=== PATIENT | female | born 1925 | race Caucasian/White ===

== ENCOUNTER 2016-08-19 10:07 | Inpatient (IN) ==
[2016-08-19] MEDS ORDERED: NS 1,000 ML IV ONE ×2 (10:29→18:23)
[2016-08-19 10:54] LABS: MANUAL DIFF NEEDED? NO
[2016-08-19 10:58] LABS: BASO% 0.6 % (0.0-0.8); EOS# 0.07 X1000 (0.0-0.7); EOS% 1.1 % (0.0-10.0); HEMATOCRIT 37.8 % (37.0-47.0); HEMOGLOBIN 12.7 g/dL (12.0-16.0); IMM GRAN# 0.02 X1000 (0.0-0.04); IMM GRAN% 0.3 % (0.0-0.5); LYMPH# 1.69 X1000 (1.2-3.4); LYMPH% 25.4 % (20.5-51.1); MCHC 33.6 g/dL (33-37); MCV 101.1 FL (81-99); MONO# 0.57 X1000 (0.11-0.59); MONO% 8.6 % (1.7-9.3); MPV 11.9 FL (7.4-10.4); PLT 277 X1000 (130-400); RBC 3.74 XMIL (4.2-5.4)
--- NOTE | 2016-08-19 11:01 | ED EKG INTERP ---
This chart was entered by Dara Huitron Scribe, acting as scribe for Carmelo Wilkes MD. EKG Interpretation - EKG Time of EKG reading by physician:: 10:11 EKG Read and Signed by:: Carmelo Wilkes EKG Interpretation (*Must complete 3 of following elements*): Abnormal Rate: 77 Rhythm: NSR [place]: normal QRS: normal MD Interval: normal ST Wave: non-specific ST changes This chart was documented by the indicated scribe, (Dara Huitron Scribe) and accurately reflects the services I performed and decisions made by ct, Carmelo Wilkes MD, as attested by the provider's signature.
[2016-08-19 11:05] LABS: INR 0.96; PROTIME 10.1 Seconds (9.2-11.7); PTT 24.1 Seconds (22.0-36.0)
[2016-08-19 11:20] LABS: ALLEN TEST YES; BE 4.5 mmoll (-3.0-3.0); BLOOD TYPE ARTERIAL; DRAW SITE R RADIAL; METHB 1.7 % (0.0-1.5); MODALITY CANNULA; O2(CT) 15.4 mL/dL (15.0-23.0); PCO2(98.6) 43 mmHg (35-45); PO2(98.6) 85 mmHg (60-100); SAMPLE BLOOD; SAO2 98.6 % (95.0-100.0); THB 11.4 g/dL (11.5-17.4); pH(98.6) 7.44 (7.35-7.45)
[2016-08-19 11:25] LABS: ALBUMIN 4.2 g/dL (3.5-5.0); CALCIUM 9.8 mg/dL (8.8-10.2); MAGNESIUM 2.2 mg/dL (1.5-2.7); TOTAL BILIRUBIN 0.42 mg/dL (0.20-1.00); TOTAL PROTEIN 8.6 g/dL (6.3-8.3)
[2016-08-19 11:46] LABS: URINE CULTURE NEEDED? NO; URINE MICRO REVIEW NEEDED? NO; URINE SOURCE CLEAN CATCH
[2016-08-19 11:53] LABS: BILIRUBIN URINE NEGATIVE (NEGATIVE); BLOOD URINE NEGATIVE (NEGATIVE); COLOR YELLOW; GLUCOSE URINE NEGATIVE (NEGATIVE); LEUKOCYTES URINE NEGATIVE (NEGATIVE); NITRITE URINE NEGATIVE (NEGATIVE); PH URINE 7.5; PROTEIN URINE TRACE mg/dL (NEGATIVE); SP GRAVITY URINE 1.011; TURBIDITY URINE HAZY (CLEAR); UROBILINOGEN URINE NORMAL (NORMAL)
[2016-08-19 11:55] LABS: UR EPITHELIAL CELLS <10 /HPF (<10); URINE BACTERIA NEGATIVE /HPF; URINE RBC <10 /HPF (<10); URINE WBC <10 /HPF (<10)
--- NOTE | 2016-08-19 12:23 | Diag Imaging Result Document ---
PROCEDURE NAME: CHEST-PORTABLE - 08/19/2016 SINGLE PORTABLE RADIOGRAPH OF THE CHEST: COMPARISON: 07/25/2016. FINDINGS: There is a calcified granuloma in the right lower lung zone. There is suggestion of stable COPD. The lungs are clear otherwise. Cardiac silhouette is prominent but stable. IMPRESSION: Stable COPD changes and cardiomegaly. No definite acute pathology.
--- NOTE | 2016-08-19 14:19 | PROVIDER DOCUMENTATION ---
This chart was entered by Dara Huitron Scribe, acting as scribe for Carmelo Wilkes MD. HPI-Neurological Disorder - General Chief Complaint: Stroke-Like Symptoms Stated Complaint: syncope Time Seen by Provider: 08/19/16 10:19 Source: patient, EMS Allergies/Adverse Reactions: Patient Allergies Allergy/AdvReac Type Severity Reaction Status Date / Time No Known Allergies Allergy Verified 08/19/16 10:28 Home Medications: Home Medication List Medication Instructions Recorded Confirmed Last Taken Type Donepezil [Aricept] 10 mg PO DAILY 02/05/16 08/19/16 08/19/16 History Folic Acid 1 mg PO DAILY 02/05/16 08/19/16 08/19/16 History Tramadol [Ultram] 50 mg PO Q8HR #12 tablet 07/25/16 08/19/16 Unknown Rx Acetaminophen [Tylenol] 325 mg PO PRN PRN 08/19/16 08/19/16 08/19/16 History - History of Present Illness-Neuro Nature of Presenting Problem: PT IS A 89YOF PRESENTING TO THE ED C/O AMS. PT IS A VERY WELL AND HEALTHY APPEARING 89YO THAT WAS TAKING A TYLENOL THIS AM AND FAMILY STATED SHE HAD A GLAZED OVER LOOK AND BEGAN TO FALL. FAMILY LOWERED HER TO THE GROUND WITHOUT INJURY. PT STATES SHE WAS CONFUSED AND HAD SOME SLURRED SPEECH. UNSURE OF THE LENGTH OF THIS EPISODE BUT DURING EXAM SHE IS COMPLETELY NEUROLOGICALLY INTACT. Severity: reports: mild Onset/Duration: reports: just prior to arrival Timing: reports: resolved prior to arrival Context: reports: other (POSSIBLE STROKE-LIKE SYMPTOMS) Character of Altered Mental Status: reports: disoriented, confused. denies: combative, agitated, unresponsive, seizure activity Any recent trauma/injury?: reports: none Character of Deficits: reports: altered sensation, decreased ability to stand New weakness or altered sensation location:: reports: general (diffuse) Cognitive Baseline: alert, oriented x3 Gait Baseline: uses a cane Associated Symptoms: reports: denies symptoms Similar Symptoms Previously?: No Recently seen or treated by another doctor?: No Review of Systems - Adult - REVIEW OF SYSTEMS - ADULT Constitutional: reports: no symptoms reported Eyes: reports: no symptoms reported Ears, Nose, Mouth & Throat: reports: no symptoms reported Cardiovascular: reports: no symptoms reported Respiratory: reports: no symptoms reported Gastrointestinal: reports: no symptoms reported Genitourinary: reports: no symptoms reported Musculoskeletal: reports: no symptoms reported Integumentary: reports: no symptoms reported Neurological: reports: see HPI, dizziness/vertigo, loss of balance, slurred speech. denies: paresthesia, seizure Psychiatric: reports: no symptoms reported Endocrine: reports: no symptoms reported Hematologic/Lymphatic: reports: no symptoms reported Allergic/Immunologic: reports: no symptoms reported All Other Systems: Reviewed and Negative Past History - Adult - PAST MEDICAL HISTORY-ADULT Review of Records: reports: Old Records Reviewed, Nursing Assessment Review, Medications Reviewed, Social history reviewed & non-contributory. Major Childhood Illnesses: reports: denies history Cardiovascular: reports: HTN Respiratory: reports: denies history Gastrointestinal: reports: denies history Obstetrical/Gynecological: reports: denies history Genitourinary: reports: kidney disease Musculoskeletal: reports: denies history Neurological: reports: Alzheimer's Endocrine/Immune: reports: denies history Other Conditions: reports: denies history - PRIOR SURGERIES/PROCEDURES Surgical/Procedure History: reports: hysterectomy - IMMUNIZATION STATUS Childhood Immunizations: See Nurse Assessment Flu Vaccine: See Nurse Assessment - FAMILY HISTORY Family History: reviewed, not pertinent - SOCIAL HISTORY Smoking: denies, non-smoker Substance Use: none/never, denies Alcohol Use Frequency: never Living Situation: family Physical Exam- Neurological - Physical Exam-Neuro Initial Vital Signs Reviewed: Yes General Appearance: appears well, alert, no apparent distress, thin Eye Exam: bilateral eye: normal inspection, PERRL, EOMI HENMT: normocephalic/atraumatic, moist mucous membranes, normal ENT inspection, TMs normal, pharynx normal Head Injury: no evidence of injury. negative: active bleeding Neck: non-tender, full range of motion, supple, normal inspection Respiratory: chest non-tender, lungs clear, normal breath sounds, no pleuratic chest pain, no respiratory distress, no accessory muscle use Cardiovascular: normal peripheral pulses, regular rate, rhythm, no edema, no gallop, no JVD, no murmur Abdominal Exam: normal bowel sounds, non tender, soft, no organomegaly, no pulsatile mass Lymphatic: no adenopathy Extremity: normal range of motion, non-tender, normal gait, normal inspection, no pedal edema, no calf tenderness, normal capillary refill, pelvis stable net repairer Exam: normal hearing, normal speech, PERRL Coordination/Gait: normal finger to nose, normal gait, negative Romberg's sign Motor/Sensory: no motor deficit, no sensory deficit, no pronator drift Neurologic: net repairer II-XII nml as tested, grossly normal, no motor/sensory deficits Integumentary: normal color, normal turgor, warm/dry Psych/Mental Status: normal mood/affect, normal thought content, normal thought process, oriented x 3 - Glascow Coma Scale Best Eye Response: (4) open spontaneously Best Verbal Response: (5) oriented Best Motor Response: (6) obeys commands Progress - PLAN OF CARE/RESULTS Progress/Plan/Lab Results: Vital Signs - 8 hr 08/19/16 10:16 08/19/16 10:18 08/19/16 11:53 Temperature 97.7 F Pulse Rate 73 73 65 Respiratory Rate 20 22 23 Blood Pressure 150/77 150/77 160/82 O2 Sat by Pulse Oximetry 99 99 99 08/19/16 12:27 08/19/16 13:45 Temperature Pulse Rate 65 72 Respiratory Rate 15 20 Blood Pressure 160/82 167/82 O2 Sat by Pulse Oximetry 100 100 Laboratory Results - last 24 hr 08/19/16 08/19/16 08/19/16 10:43 10:43 10:43 WBC 6.65 RBC 3.74 L Hgb 12.7 Hct 37.8 MCV 101.1 H MCH 34.0 H MCHC 33.6 RDW Std Deviation 16.5 H Plt Count 277 MPV 11.9 H Immature Gran % (Auto) 0.3 Neut % (Auto) 64.0 Lymph % (Auto) 25.4 Blaine % (Auto) 8.6 Eos % (Auto) 1.1 Baso % (Auto) 0.6 Immature Gran # (Auto) 0.02 Neut # (Auto) 4.26 Lymph # (Auto) 1.69 Blaine # (Auto) 0.57 Eos # (Auto) 0.07 Baso # (Auto) 0.04 PT INR PTT (Actin FS) Specimen Type Sample Site pH pCO2 pO2 HCO3 Base Excess Oxyhemoglobin ABG O2 Sat (Calculated) ABG O2 Saturation ABG Carboxyhemoglobin ABG Methemoglobin Earl Test A-a O2 Difference Total Hemoglobin Lactate Blood Gas Modality FiO2 % Sodium 137 Potassium 4.0 Chloride 99 Carbon Dioxide 28 Anion Gap 10 BUN 21 Creatinine 1.1 H Estimated GFR/1.73 m2 47 BUN/Creatinine Ratio 19 Glucose 90 Calculated Osmolality 276 Calcium 9.8 Magnesium 2.2 Total Bilirubin 0.42 AST 20 ALT 11 Alkaline Phosphatase 92 Creatine Kinase 64 Troponin T Total Protein 8.6 H Albumin 4.2 Globulin 4.4 Albumin/Globulin Ratio 1.0 Plasma Lactate Urine Source Urine Color Urine Turbidity Urine pH Ur Specific [place] Urine Protein Ur Glucose (Stick) Ur Ketones (Stick) Urine Blood Urine Nitrite Urine Bilirubin Urobilinogen Dipstick Urine Leukocytes Urine WBC (Auto) Urine RBC (Auto) U Epithel Cells (Auto) Urine Bacteria (Auto) Plasma/Serum Ethyl Alc 08/19/16 08/19/16 08/19/16 10:43 10:43 10:43 WBC RBC Hgb Hct MCV MCH MCHC RDW Std Deviation Plt Count MPV Immature Gran % (Auto) Neut % (Auto) Lymph % (Auto) [place] % (Auto) Eos % (Auto) Baso % (Auto) Immature Gran # (Auto) Neut # (Auto) Lymph # (Auto) Blaine # (Auto) Eos # (Auto) Baso # (Auto) PT 10.1 INR 0.96 PTT (Actin FS) 24.1 Specimen Type Sample Site pH pCO2 pO2 HCO3 Base Excess Oxyhemoglobin ABG O2 Sat (Calculated) ABG O2 Saturation ABG Carboxyhemoglobin ABG Methemoglobin Earl Test A-a O2 Difference Total Hemoglobin Lactate Blood Gas Modality FiO2 % Sodium Potassium Chloride Carbon Dioxide Anion Gap BUN Creatinine Estimated GFR/1.73 m2 BUN/Creatinine Ratio Glucose Calculated Osmolality Calcium Magnesium Total Bilirubin AST ALT Alkaline Phosphatase Creatine Kinase Troponin T < 0.010 Total Protein Albumin Globulin Albumin/Globulin Ratio Plasma Lactate 1.1 Urine Source Urine Color Urine Turbidity Urine pH Ur Specific [place] Urine Protein Ur Glucose (Stick) Ur Ketones (Stick) Urine Blood Urine Nitrite Urine Bilirubin Urobilinogen Dipstick Urine Leukocytes Urine WBC (Auto) Urine RBC (Auto) U Epithel Cells (Auto) Urine Bacteria (Auto) Plasma/Serum Ethyl Alc 08/19/16 08/19/16 11:15 11:39 WBC RBC Hgb Hct MCV MCH MCHC RDW Std Deviation Plt Count MPV Immature Gran % (Auto) Neut % (Auto) Lymph % (Auto) [place] % (Auto) Eos % (Auto) Baso % (Auto) Immature Gran # (Auto) Neut # (Auto) Lymph # (Auto) [place] # (Auto) Eos # (Auto) Baso # (Auto) PT INR PTT (Actin FS) Specimen Type ARTERIAL Sample Site R RADIAL pH 7.44 pCO2 43 pO2 85 HCO3 28.4 H Base Excess 4.5 H Oxyhemoglobin 95.2 ABG O2 Sat (Calculated) 15.4 ABG O2 Saturation 98.6 ABG Carboxyhemoglobin 1.80 ABG Methemoglobin 1.7 H Earl Test YES A-a O2 Difference 11.0 Total Hemoglobin 11.4 L Lactate 1.00 Blood Gas Modality CANNULA FiO2 % 21.0 Sodium Potassium Chloride Carbon Dioxide Anion Gap BUN Creatinine Estimated GFR/1.73 m2 BUN/Creatinine Ratio Glucose Calculated Osmolality Calcium Magnesium Total Bilirubin AST ALT Alkaline Phosphatase Creatine Kinase Troponin T Total Protein Albumin Globulin Albumin/Globulin Ratio Plasma Lactate Urine Source CLEAN CATCH Urine Color YELLOW Urine Turbidity HAZY Urine pH 7.5 Ur Specific [place] 1.011 Urine Protein TRACE A Ur Glucose (Stick) NEGATIVE Ur Ketones (Stick) NEGATIVE Urine Blood NEGATIVE Urine Nitrite NEGATIVE Urine Bilirubin NEGATIVE Urobilinogen Dipstick NORMAL Urine Leukocytes NEGATIVE Urine WBC (Auto) <10 Urine RBC (Auto) <10 U Epithel Cells (Auto) <10 Urine Bacteria (Auto) NEGATIVE Plasma/Serum Ethyl Alc Orders Category Date Time Status Cardiac Monitoring DIRECTED Care 08/19/16 10:29 Active Finger Stick Blood Sugar (ED) DIRECTED Care 08/19/16 10:29 Active Saline Loc NOW Care 08/19/16 10:29 Active cardiac diet [Heart Healthy Diet] Diet 08/19/16 14:02 Active CHEST-PORTABLE [RAD] Stat Exams 08/19/16 10:29 Completed HEAD W/O CONTRAST [CT] Stat Exams 08/19/16 10:30 Taken ABG [RESP] Routine Lab 08/19/16 11:15 Completed ALCOHOL BLOOD Stat Lab 08/19/16 10:43 Completed CBC WITH ELECTRONIC DIFF [HEME] Stat Lab 08/19/16 10:43 Completed CK PROFILE [SP CHEM] Stat Lab 08/19/16 10:43 Completed COMPREHENSIVE METABOLIC PANEL [CHEM] Stat Lab 08/19/16 10:43 Completed LACTATE, PLASMA [CHEM] Stat Lab 08/19/16 10:43 Completed MAGNESIUM [CHEM] Stat Lab 08/19/16 10:43 Completed PROTIME WITH INR [COAG] Stat Lab 08/19/16 10:43 Completed PTT [COAG] Stat Lab 08/19/16 10:43 Completed TROPONIN T Stat Lab 08/19/16 10:43 Completed URINALYSIS W/POSS RFLX CULT-1 [URINALYSIS] Stat Lab 08/19/16 11:39 Completed 0.9% Sodium Chloride Inj [Ns] 1,000 ml Med 08/19/16 10:29 Active IV 100 mls/hr Pulse Oximetry Stat Oth 08/19/16 10:29 Completed EKG [EKG] Stat Ther 08/19/16 10:29 Ordered Transfer/Admit Order [TRANSFER] Routine Transfer 08/19/16 13:56 Ordered Result Diagrams: 08/19/16 10:43 08/19/16 10:43 - REASSESSMENT Reassessment #1 Time Reassessed: 14:17 Status: improving (Pt is stable. Will admit) - CT/MRI 1 CT Study: Head CT Results: Stable, NAP - CONSULTS/PCP/HOSPITALIST Notification Time Discussed: 14:19 Reason/Comments: Admit to Dr. Parra Consult Disposition: Admit Departure - Departure Time of Disposition Decision: 14:18 DIAGNOSIS: TIA (transient ischemic attack) Disposition: ADMITTED INPATIENT 09 Certified Medical Emergency: Emergent Condition: Stable - Critical Care Note This patient required my direct & personal management of CC.: No This chart was documented by the indicated scribe, (Dara Huitron Scribe) and accurately reflects the services I performed and decisions made by me, Carmelo Wilkes MD, as attested by the provider's signature.
[2016-08-19] MEDS ORDERED: TYLENOL PO PRN (17:15)
--- NOTE | 2016-08-19 17:40 | HISTORY AND PHYSICAL ---
CHIEF COMPLAINT: Altered mental status. HISTORY OF PRESENT ILLNESS: Mrs. Grier is a very pleasant, 89-year-old female with a history of colon cancer, ovarian cancer, and renal cell carcinoma, all in remission, who presents after acute onset of altered mental status while at home. Mrs. Grier actually also has a history of cervical spine fracture which occurred last year. She has had chronic neck pain since then and she takes Tylenol p.r.n. for neck pain. She was getting ready for jewish this morning and she was taking her Tylenol for pain when her daughter reported that she had an acute onset of what she calls glazed look over her face. She was not really responsive. Her daughter came over to help her sit down and while she was walking her to the chair her legs went limp and she was gently placed on the floor, at which time 911 was called. By the time the ambulance arrived, the patient started coming to. Apparently there was about a 5 or 10 second period of unconsciousness. She got to the ER and she had a head CT done which did not show anything acute and her lab data is largely unremarkable with the exception of some mild renal insufficiency and some macrocytosis. Her vitals are stable. She currently is awake alert and oriented and she follows commands without any focal deficits. She denies any recent chest pain, shortness of breath, nausea, vomiting, diarrhea, constipation, orthopnea, or lower extremity edema. We are going to admit her for further treatment and evaluation. PAST MEDICAL HISTORY: 1. Renal cell carcinoma, colon cancer, ovarian cancer in remission. 2. Hypertension. 3. Compression fracture of C7 through T1. 4. Folic acid deficiency. 5. Dementia. PAST SURGICAL HISTORY: She has had a partial colectomy and nephrectomy. SOCIAL HISTORY: No history of tobacco, alcohol, or drug use. She lives with her daughter. She is . FAMILY HISTORY: Noncontributory. ALLERGIES: No known drug allergies. HOME MEDICATIONS: Tylenol 325 mg p.o. as needed for pain, Aricept 10 mg daily, folic acid 1 mg daily, Ultram 50 mg every 8 hours as needed for pain. REVIEW OF SYSTEMS: A 14-point review of systems was obtained and found to be negative with the exception of the HPI. PHYSICAL EXAMINATION: VITAL SIGNS: Blood pressure is 167/82, heart rate 72, respiratory rate is 20, O2 saturation is 100% on room air, temperature is 97.7 degrees. GENERAL: This is a frail, elderly female, lying in hospital bed, no acute distress. NEUROLOGIC: The patient is awake, alert, and oriented. She follows commands without focal deficits. HEENT: Head is atraumatic, normocephalic. Pupils equal, round, and reactive to light. Oral mucosa is moist. Trachea is midline. No JVD. No carotid bruits. CHEST: Clear to auscultation bilaterally. CV: Regular rate and rhythm. S1, S2 is noted. No murmurs, gallops, clicks, or rubs. GI: Soft, nondistended, nontender. Bowel sounds positive. EXTREMITIES: Without edema, clubbing, or cyanosis. Pulses palpable bilaterally. DIAGNOSTIC DATA: Head CT shows chronic changes, nothing acute. EKG shows normal sinus rhythm with nonspecific ST and T changes. Chest x-ray, stable COPD changes and cardiomegaly. No definite acute pathology. WBC 6.65, hemoglobin 12.7, hematocrit 37.8, MCV 101, platelet count 277,000. PT 10.1, INR 0.96. ABG on room air, pH 7.44, CO2 43, O2 85, bicarb 28.4, base excess 4.5. Sodium 137, potassium 4.0, chloride 99, CO2 28, anion gap 10, BUN 21, creatinine 1.1, glucose is 90, calcium 9.8. LFTs within normal limits. Troponin negative. Protein 8.6, albumin 4.2. UA is negative for acute process. Alcohol level was 0. ASSESSMENT AND PLAN: 1. Transient ischemic attack: The patient's symptoms are most consistent with a transient ischemic attack. She has no focal deficits at this time. Will admit her and check an MRI in the morning. We will check a carotid ultrasound and echocardiogram. We will check lipid, hemoglobin A1c, and get physical therapy on board as she has been apparently falling quite a bit at home. We will also consult social work. 2. Known cervical 7 through thoracic 1 vertebral fractures: She did not exhibit any focal deficits. Will add an MRI of her cervical spine onto her MRI imaging in the morning. Monitor neuro status closely. 3. Renal insufficiency: Likely age related CKD. Will continue light IV fluid hydration, avoid nephrotoxic medications, and monitor her creatinine. 4. Hypertension: Allowing for permissive hypertension in the first 24 hours. We will resume Norvasc when we are able. 5. Multiple organ malignancies, currently in remission: Aware. 6. Deep vein thrombosis prophylaxis with Lovenox. Further recommendations to follow. Dictated by PREET Crawford for Howard Latham MD cc: PREET Crawford MD MTDD
[2016-08-19] MEDS: ASPIRIN PO SCH (18:08)
[2016-08-19] MEDS: ULTRAM PO SCH (21:19)
--- NOTE | 2016-08-20 05:39 | EKG Report ---
Test Performed on : 08/19/2016 10:11:59 AM Test Reason : AMS Blood Pressure : / mmHG Vent. Rate : 077 BPM Atrial Rate : 077 BPM P-R Int : 118 ms QRS Dur : 084 ms QT Int : 392 ms P-R-T Axes : 035 059 067 degrees QTc Int : 443 ms Normal sinus rhythm. Nonspecific ST abnormality Abnormal ECG When compared with ECG of 05-FEB-2016 13:36, premature ventricular complexes. are no longer present Unconfirmed Result
[2016-08-20] MEDS: ULTRAM PO SCH ×3 (05:45→20:55)
[2016-08-20 07:09] LABS: HEMATOCRIT 34.5 % (37.0-47.0); HEMOGLOBIN 11.6 g/dL (12.0-16.0); MCH 34.7 PG (27-31); MCHC 33.6 g/dL (33-37); MCV 103.3 FL (81-99); MPV 12.1 FL (7.4-10.4); RBC 3.34 XMIL (4.2-5.4)
--- NOTE | 2016-08-20 07:21 | Diag Imaging Result Document ---
PROCEDURE NAME: HEAD W/O CONTRAST - 08/19/2016 COMPARISON: 07/25/2016. FINDINGS: There is mild patchy low attenuation in the periventricular and subcortical white matter suggesting mild microangiopathy, stable. There is stable mild age-appropriate brain atrophy. There is no evidence of acute infarct given the limited sensitivity of CT versus MRI. There is no discrete intracranial mass, mass effect, or intracranial hemorrhage. Surrounding soft tissues and bony structures are essentially unremarkable. IMPRESSION: Stable mild chronic changes. No evidence of acute intracranial pathology.
[2016-08-20 07:32] LABS: AGAP 8; BUN 17 mg/dL (8-22); CALCIUM 9.2 mg/dL (8.8-10.2); CHLORIDE 102 mmol/L (98-107); COSMO 273; IRON SATURATION 44 %; SODIUM 136 mmol/L (136-145); TCO2 26 mmol/L (25-35); TIBC 251 ug/dL; TOTAL IRON 110 ug/dL (49-151); UNBOUND IRON 141 ug/dL (112-346)
[2016-08-20 07:37] LABS: HEMOGLOBIN A1C 5.3 % (4.8-6.0)
[2016-08-20] MEDS: LOVENOX SUBQ SCH (09:18)
[2016-08-20] MEDS: FOLIC ACID PO SCH (09:18)
[2016-08-20] MEDS: ASPIRIN PO SCH (09:18)
[2016-08-20] MEDS: ARICEPT PO SCH (09:18)
[2016-08-20] MEDS: ZOFRAN IV PRN ×2 (14:37→17:42)
--- NOTE | 2016-08-20 14:39 | ECHO REPORT ---
ORDER DATE: 08/20/2016 ECHOCARDIOGRAPHIC MEASUREMENTS: 1. Interventricular septum 0.8. Left ventricular posterior wall 0.8. Diastolic diameter 4.0. Left atrium 4.5. Aorta 3.1. Normal left ventricular cavity size. Estimated ejection fraction of 55-60%. Mitral valve leaflets are mildly thickened opening normally. Tricuspid valve was normal. There is mitral annular calcification. Aortic valve leaflets are sclerosed, trileaflet. 2. Peak velocity across the aortic valve less than 2 m/sec. There is no aortic stenosis or regurgitation. There is mild mitral regurgitation. 3. There is moderate tricuspid regurgitation. Peak velocity across the tricuspid valve was 2.8 m/sec. Pulmonary artery systolic pressure of 41-46 mmHg and there is mild pulmonary regurgitation. 4. There is no pericardial effusion or obvious intracardiac mass or thrombus. cc: MD Jeffry Worrell CRNP
[2016-08-20] MEDS ORDERED: DULCOLAX PR ONE (17:48)
--- NOTE | 2016-08-20 18:07 | PROGRESS NOTE ---
DATE: 08/20/2016 SUBJECTIVE: When I evaluated this patient she was feeling better. No signs of weakness or mental status changes. When this patient went for an MRI she started with nausea and vomiting and then they send this patient back to the room. She received treatment. At this moment she is stable. Pending MRI of the neck. Hopefully she will get it tomorrow. OBJECTIVE: Vital Signs: Temperature 97.8 degrees, pulse 68, respiratory rate 18, blood pressure 152/71, oxygen saturation 96 on room air. HEENT: Head normocephalic. No trauma. PERRLA. Neck: Supple. No JVD. No masses. Central trachea. Chest: Clear to auscultation. No wheezing. No rales. Abdomen: Soft, nontender, nondistended. No hepatosplenomegaly. Extremities: No edema. No clubbing. No cyanosis. Neurological: The patient is alert and oriented x3. No focal neurological deficits. LABORATORY: WBC 9.3, hemoglobin 11.6, hematocrit 34.5, platelets 258,000. Sodium 136, potassium 4, chloride 102, bicarbonate 26, BUN 17, creatinine 0.8, glucose 94. Calcium 9.2. ASSESSMENT AND PLAN: 1. Transient ischemic attack, symptoms resolved. This patient has never been on aspirin and we put this patient on 81 mg p.o. daily. For now will continue with this treatment. I talked to the daughter with the patient at the same time and I explained the risk and benefits of aspirin treatment. 2. Known cervical 7 through thoracic 1 vertebral fracture. This patient has been complaining of neck pain. We ordered an MRI but this patient was vomiting today and it was canceled. Hopefully we can get it tomorrow. 3. Renal insufficiency likely related to chronic kidney disease. Continue with IV fluid hydration, avoid nephrotoxic medications. 4. Hypertension. Continue with the same management, we allowed permissive hypertension for 24 hours. We will resume Norvasc tomorrow. 5. Multiple organ malignancies currently in remission. Aware. 6. Deep vein thrombosis prophylaxis with Lovenox. cc: Howard Latham MD
--- NOTE | 2016-08-20 18:31 | Carotid Study ---
DATE: 08/20/2016 PROCEDURE: Carotid duplex imaging. REFERRING PHYSICIAN: Dr. Parra INTERPRETING PHYSICIAN: Dr. More TECH: [place] INDICATIONS: The patient has had a TIA with altered mental status and syncope. OBSERVED DATA RIGHT LEFT Brachial Blood Pressure Carotid Pulse Bruits: Carotid/Sub DIAGRAM OF ULTRASOUND IMAGING R L RIGHT INT EXT INT EXT LEFT Giorgi (cm/s) Giorgi (cm/s) Subclavian 51/0 Subclavian 51/0 CCA Proximal 56/11 CCA Proximal 49/11 CCA Distal 51/14 CCA Distal 62/19 Bulb 60/14 Bulb 60/14 ICA Proximal 56/15 ICA Proximal 50/13 ICA Mid 68/26 ICA Mid 52/17 ICA Distal 81/21 ICA Distal 59/16 ECA 59/0 ECA 56/0 Vertebral Antegrade, 58/15 Vertebral Antegrade, 43/8 ICA/CCA Ratio 1.4 ICA/CCA Ratio 0.95 % Stenosis 0-39 % Stenosis 0-39 FINDINGS: No significant plaque is seen. PHYSICIAN INTERPRETATION: No significant plaque disease identified. There is antegrade vertebral flow bilaterally. cc: MD Jeffry Hutchison CRNP
[2016-08-21] MEDS: ZOFRAN IV PRN ×2 (04:39→09:21)
[2016-08-21] MEDS: ULTRAM PO SCH ×2 (04:40→13:50)
[2016-08-21 06:14] LABS: HEMATOCRIT 31.4 % (37.0-47.0); HEMOGLOBIN 10.4 g/dL (12.0-16.0); MCH 34.1 PG (27-31); MCHC 33.1 g/dL (33-37); MPV 12.1 FL (7.4-10.4); RBC 3.05 XMIL (4.2-5.4)
[2016-08-21 06:28] LABS: POTASSIUM 4.1 mmol/L (3.5-5.1)
--- NOTE | 2016-08-21 08:08 | Diag Imaging Result Document ---
PROCEDURE NAME: CHON ABDOMEN - 08/20/2016 SINGLE SUPINE RADIOGRAPH OF THE ABDOMEN AND PELVIS: COMPARISON: None available. FINDINGS: There are nonspecific colonic stool and gas patterns. There is a fair amount of stool in the right colon and rectum. This could suggest mild constipation. There is no specific obstructive pattern. There is no definite large volume free abdominal gas given the limitations of a supine study. There are multiple metallic clips scattered throughout the abdomen. IMPRESSION: 1. Nonspecific abdomen. 2. Questionable mild constipation.
[2016-08-21] MEDS: FOLIC ACID PO SCH (09:17)
[2016-08-21] MEDS: ARICEPT PO SCH (09:17)
[2016-08-21] MEDS: ASPIRIN PO SCH (09:17)
[2016-08-21] MEDS: LOVENOX SUBQ SCH (09:17)
--- NOTE | 2016-08-21 09:53 | Diag Imaging Result Document ---
PROCEDURE NAME: MRI CERVICAL SPINE W/O CONTRAS - 08/20/2016 MRI CERVICAL SPINE WITHOUT: FINDINGS: Although there is good alignment to the cervical spine, there is a severe compression fracture to the T1 vertebra with reversal of the normal curvature. This apparently represents an old fracture. There is also a moderate compression fracture to the C7 vertebra. This is also old. C2-3: Normal disk. No spinal stenosis or cord compression. Neither neural foramen is narrowed. C3-4: Normal disk. No spinal stenosis or cord compression. Neither neural foramen is narrowed. C4-5: There is a mild bulging disk. Mild spinal stenosis. No cord compression. Each neural foramen is at least mildly narrowed. C5-6: There is a small bulging disk. No spinal stenosis or cord compression. Each neural foramen is mildly narrowed. C6-7: There is a small. bulging disk. No spinal stenosis or cord compression. There is mild narrowing of the right neural foramen. C7-T1:No disk bulge. There is mild to moderate bony narrowing of the canal due to the compression fracture at T1. There is sharp angulation to the cord at this level. No definite neural foraminal narrowing. IMPRESSION: 1. Apparent old compression fractures to the C7 and T1 vertebra with marked reversal of the normal curvature with bony spinal stenosis at C7-T1. 2. There are several small bulging disk throughout the cervical spine, but no disk herniation or disk fragment.
--- NOTE | 2016-08-21 10:09 | Diag Imaging Result Document ---
PROCEDURE NAME: MRI BRAIN W W/O CONTRAST - 08/20/2016 MRI BRAIN WITH AND WITHOUT: FINDINGS: Axial, sagittal, and coronal images obtained in multiple sequences. These are followed by postcontrasted axial and coronal images. No recent infarct. There is diffuse atrophy, in addition to at least mild microvascular ischemic changes. No mass or midline shift. No hydrocephalus. No epidural or subdural fluid collection. No enhancing lesion on the postcontrasted images. No sinus opacification and no air fluid levels. IMPRESSION: Atrophy with at least mild microvascular ischemic changes, but no recent infarct.
[2016-08-21 11:48] VITALS: BP 143/67
--- NOTE | 2016-08-21 19:51 | DISCHARGE SUMMARY ---
ADMISSION DATE: 08/19/2016 DISCHARGE DATE: 08/21/2016 CONSULTATIONS: None. PERTINENT PROCEDURES: Brain MRI: Showed atrophy with at least mild microvascular ischemic changes, but no recent infarct. Cervical spine MRI: 1. Showed apparent compression fractures C7 and T1 vertebra with marked reversal of normal curvature with bony spinal stenosis at C7 through T1. 2. Several small bulging disks throughout the cervical spine, but no disk herniation or disk fragment. Carotid Dopplers: Showed no significant plaque disease. There is antral grade vertebral flow bilaterally. Echocardiogram: Showed an ejection fraction of 55-60%. Abdominal x-ray: Showed nonspecific, questionable mild constipation. DISCHARGE DIAGNOSES: 1. Transient ischemic attack. Symptoms have resolved. The patient will remain on low-dose aspirin. 2. Known cervical 7 through thoracic 1 vertebral fracture. 3. Renal insufficiency related to chronic kidney disease, improved. 4. Hypertension. Continue with home medications. 5. Multiple organ malignancies, currently in remission. Aware. HOSPITAL COURSE: Ms. Grier is an 89-year-old female with a history of: Colon cancer, Ovarian cancer, Renal cell carcinoma in remission. Who presented after an acute onset of altered mental status while at home. She also carries a history of a cervical spine fracture, which occurred last year as well as chronic neck pain that she takes p.r.n. Tylenol for. The patient was getting ready to go to [facility]. She was taking Tylenol for her pain, when her daughter reported that she had an acute onset of what she called a "glazed look over her face." She was not really responsive. Her daughter came to help her sit down and while they were walking to her chair, her legs went limp and she was gently placed on the floor. At which time, they called 911. In the emergency department, the patient had a head CT that did not show anything acute. Her laboratory data was largely unremarkable, except for some mild renal insufficiency and some micro cytosis. Her vital signs were stable in the emergency department. While she was being examined, she was awake, alert, oriented, followed commands without any focal deficits. The patient was admitted for a transient ischemic attack. She was initiated on low dose aspirin. She had a negative workup with MRI, carotids, as well as an echo that showed an ejection fraction of 55%. Throughout her admission, there has been no signs of weakness or mental status changes. The patient is being discharged home today with her daughter. VITAL SIGNS: Temperature is 97.9 degrees, heart rate 78, respirations 18, blood pressure 133/67, O2 is 99% on room air. DISCHARGE DIET: Healthy heart. DISCHARGE MEDICATIONS: 1. Tylenol 325 mg p.o. p.r.n. 2. Aspirin 81 mg p.o. daily. 3. Aricept 10 mg p.o. daily. 4. Folic acid 1 mg p.o. daily. 5. Ultram 50 mg p.o. every 8 hours. DISPOSITION: The patient is being discharged home. FOLLOWUP CARE: 1. She can follow up with her primary care physician. 2. The patient can return to the emergency department for any worsening of symptoms. DISCHARGE TIME: 35 minutes. Dictated by PREET Judd for Samuel Read MD cc: Samuel Read MD MTDD
== END 2016-08-21 16:25 | disposition home or self-care (01) ==
LOC: ED 10:07 → 4N 15:51 → SUATTDRO 15:51
PROVIDERS: ATTEND Internal Medicine